=== PATIENT | female | born 1990 | race Caucasian/White ===

== ENCOUNTER → 2023-04-22 11:16 | Outpatient (CLI) | payer OTHER, SELFPAY ==
--- NOTE | 2023-04-22 | DI.RAD.S_ITS ---
'PROCEDURE: XR WRIST 3V LEFT INDICATIONS: left wrist pain TECHNIQUE: 4 views of the wrist were acquired. COMPARISON: None. FINDINGS: Bones: 1-2 mm ossific density in the volar soft tissues just anterior to the carpal bones only noted on the lateral Soft tissues: No suspicious soft tissue calcifications. IMPRESSION: Possible tiny avulsion fracture noted in the volar soft tissues on one view. Consider follow-up in 1 month assess interval healing. Approved by: Noah Mike M.D. on 04/22/2023 at 18:44
== END ==
PROVIDERS: Referring Provider Registered Nurse; Visit Provider Registered Nurse
DX: M25.532 Pain in left wrist (principal)
CPT/HCPCS: 73110